=== PATIENT | female | born 1970 | race Caucasian/White ===

== ENCOUNTER 2017-08-28 14:01 | Outpatient (CLI) | payer BC, MEDICARE | END 2017-08-28 14:02 | disposition home or self-care (01) | LOC: MWLC DTY 14:01 | PROVIDERS: ATTEND Family Medicine | DX: E11.9 Type 2 diabetes mellitus without complications (principal); Z71.3 Dietary counseling and surveillance | CPT/HCPCS: 97802 ==

== ENCOUNTER 2017-12-22 07:30 | Outpatient (CLI) | payer BC, MEDICARE ==
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
== END 2017-12-22 07:31 | disposition home or self-care (01) ==
LOC: SCSMRI 07:30
PROVIDERS: ATTEND Family Medicine
DX: M54.2 Cervicalgia (principal)
CPT/HCPCS: 72141